=== PATIENT | female | born 2000 | race Caucasian/White ===

== ENCOUNTER 2023-04-17 21:56 | Emergency (ER) | payer BC ==
[~2023-04-17] VITALS: Ht 154.9 cm; Wt 52.6 kg
[2023-04-17 22:00] VITALS: BP 117/54; PULSE 86; RESP 17; TEMP 98.3; O2SAT 100
[2023-04-18] MEDS ORDERED: KETOROLAC 30 MG/ML VIAL IM ONE (00:35)
[2023-04-18] MEDS ORDERED: NAPR-54 PO (00:36)
[2023-04-18 01:20] VITALS: BP 117/54; PULSE 86; RESP 17; TEMP 98.3; O2SAT 100
== END 2023-04-18 01:20 | disposition home or self-care (01) ==
LOC: MED 21:56
DX: S93.402A Sprain of unspecified ligament of left ankle, initial encounter (principal); Z79.1 Long term (current) use of non-steroidal anti-inflammatories (NSAID); W18.39XA Other fall on same level, initial encounter; Y92.89 Other specified places as the place of occurrence of the external cause; Y93.89 Activity, other specified; Y99.8 Other external cause status
CPT/HCPCS: 73610; 96372; 99283; J1885